=== PATIENT | female | born 1980 | race African-American/Black ===

== ENCOUNTER 2016-07-24 10:58 | Emergency (ER) | payer MEDICAID, MEDICARE ==
[2016-07-24] MEDS ORDERED: MORPHINE SULFATE 5 MG/ML PFS IVP ONE (11:20)
[2016-07-24] MEDS ORDERED: ONDANSETRON HCL IV 4 MG/2 ML VIAL IVP ONE (11:20)
--- NOTE | 2016-07-24 11:24 | Emergency Department Record ---
History of Present Illness - General Chief Complaint: Abdominal Pain Stated Complaint: ABD PAIN Time Seen by Provider: 07/24/16 11:01 Source: Patient Mode of Arrival: Wheelchair Limitations: No limitations - History of Present Illness Initial Comments: 35 yo female presents to ED with a CC of suprapubic abdominal pain, right sided flank pain, nausea, and vomiting symptoms that began last night and have progressively worsened. Patient denies fevers/chills or urinary symptoms, and reports previous samuel. Patient reports a history of DM at her baseline. MD Complaint: Abdominal pain Onset/Timin -: Hour(s) Location: Suprapubic Radiation: None Severity: Severe Quality: Aching Consistency: Constant Improves With: Nothing Worsens With: Nothing Associated Symptoms: Nausea, Vomiting - Related Data LMP Date: 03/05/16 Patient : No Home Medications Medication Instructions Recorded Confirmed Last Taken Insulin Aspart [Novolog] 10 units SQ TIDAC 07/24/16 07/24/16 07/23/16 Insulin Glargine,Hum.rec.anlog 30 unit SQ QHS 07/24/16 07/24/16 07/23/16 [Lantus] Allergies Allergy/AdvReac Type Severity Reaction Status Date / Time No Known Drug Allergies Allergy Verified 07/24/16 11:09 Travel Screening - Travel/Exposure Within Last 30 Days Have you traveled within the last 30 days?: No - Travel/Exposure Within Last Year Have you traveled outside the [place] in the last year?: No - Additonal Travel Details Have you been exposed to anyone with a communicable illness?: No - Travel Symptoms Symptom Screening: None Review of Systems Constitutional: Denies: Chills, Fever, Malaise, Night sweats Eyes: Denies: Eye discharge, Eye pain ENT: Denies: Congestion, Ear pain, Epistaxis Respiratory: Denies: Cough, Dyspnea Cardiovascular: Denies: Chest pain, Dyspnea on exertion Endocrine: Denies: Fatigue, Heat or cold intolerance Gastrointestinal: Reports: Abdominal pain, Nausea, Vomiting Genitourinary: Denies: Frequency, Hematuria, Incontinence, Retention Musculoskeletal: Reports: Back pain (right sided flank pain). Denies: Arthralgia, Gout, Joint swelling Skin: Denies: Bruising, Change in color, Change in hair/nails Neurological: Denies: Abnormal gait, Confusion, Headache Psychiatric: Denies: Anxiety Past Medical History - SOCIAL HISTORY Smoking Status: Never smoker Alcohol Use: None Drug Use: None - RESPIRATORY Hx Respiratory Disorders: No - CARDIOVASCULAR Hx Cardio Disorders: No - NEURO Hx Neuro Disorders: No - GI Hx GI Disorders: No - Hx Genitourinary Disorders: No - ENDOCRINE Hx Endocrine Disorders: Yes Hx Diabetes: Yes Hx Thyroid Disease: No - MUSCULOSKELETAL Hx Musculoskeletal Disorders: No - PSYCH Hx Psych Problems: No - HEMATOLOGY/ONCOLOGY Hx Hematology/Oncology Disorders: No Family Medical History Any Significant Family History?: No Physical Exam - General General Appearance: Alert, Oriented x3, Cooperative, Moderate distress (appears uncomfortable on examination) Limitations: No limitations - Head Head exam: Atraumatic, Normocephalic, Normal inspection Head exam detail: negative: Abrasion, Contusion, Valenzuela's sign, General tenderness, Hematoma, Laceration - Eye Eye exam: Normal appearance. negative: Conjunctival injection, Periorbital swelling, Periorbital tenderness, Scleral icterus - ENT Ear exam: negative: Auricular hematoma, Auricular trauma Nasal Exam: negative: Active bleeding, Discharge, Dried blood, Foreign body Mouth exam: negative: Drooling, Laceration, Muffled voice, Tongue elevation - Neck Neck exam: Normal inspection. negative: Meningismus, Tenderness - Respiratory Respiratory exam: Normal lung sounds bilaterally. negative: Respiratory distress, Rhonchi, Stridor, Wheezes - Cardiovascular Cardiovascular Exam: Normal rhythm, Normal heart sounds, Tachycardia - GI/Abdominal GI/Abdominal exam: Soft, Tenderness (TTP suprapubic region on examination without rebound or guarding symptoms). negative: Organomegaly, Pulsatile mass, Rebound, Rigid - Rectal Rectal exam: Deferred - exam: Deferred - Extremities Extremities exam: Normal inspection. negative: Calf tenderness, Pedal edema, Tenderness - Back Back exam: Reports: CVA tenderness (R). Denies: CVA tenderness (L) - Neurological Neurological exam: Alert, Oriented X3. negative: Motor sensory deficit - Psychiatric Psychiatric exam: Normal affect, Normal mood - Skin Skin exam: Normal color. negative: Abrasion Type of lesion: negative: abrasion Course Vital Signs 07/24/16 10:59 Temperature 98.9 F Pulse Rate 105 H Respiratory 20 Rate Blood Pressure 203/116 Pulse Ox 99 - Reevaluation(s) Reevaluation #1: 07/24/16 12:58 Patient is back from CT imaging, reports that her pain symptoms have worsened following her imaging study. Morphine was administered approximately 25 minutes ago IM, Dilaudid ordered IV at this time. Reevaluation #2: 07/24/16 13:19 CT Abdomen and Pelvis: No definite acute process identified, no hydronephrosis, s/p cholecystectomy Reevaluation #3: 07/24/16 14:07 Patient was updated on all results, and appears to be resting comfortably. Records from [facility] [place] Emergency Department reviewed, patient has been seen multiple times for similar symptoms with negative work-ups. Patient has been seen in ED 5 times in 2 weeks for abdominal pain and chest pain symptoms. In review of the patient's records, she has a history of leaving AMA when opiates are not given in ED. Patient also saw her PCP Dr. Ambrosio 07/21 for her symptoms and is being referred to GI for further evaluation. Patient's laboratory studies today are very similar to 07/23/16 at [facility], and the patient appears stable for discharge at this time with instructions for follow- up with her PCP for her chronic abdominal pain symptoms. Patient was also counseled on the number of CT imaging studies that she has undergone and the risk of cancer due to radiation exposure. Patient was counseled to be honest with her previous evaluations as well. Medical Decision Making - Lab Data Result diagrams: 07/24/16 13:30 07/24/16 13:30 Disposition Disposition: Discharge Clinical Impression: Chronic abdominal pain Disposition: Home, Self-Care Condition: (2) Stable Instructions: Abdominal Pain (ED) Additional Instructions: Return to ED if your symptoms worsen or if you have any concerns. Follow-up with Dr. Ambrosio in 3-5 days as directed for your chronic pain symptoms. Forms: Patient Portal Access Time of Disposition: 14:16
[2016-07-24] MEDS ORDERED: 0.9 % SODIUM CHLORIDE 1000ML 1,000 ML IV SCH (11:30)
[2016-07-24] MEDS ORDERED: MORPHINE SULFATE 5 MG/ML PFS IM ONE (12:09)
[2016-07-24] MEDS ORDERED: ONDANSETRON 4 MG ODT TABLET SL ONE (12:10)
[2016-07-24] MEDS ORDERED: HYDROMORPHONE HCL 1 MG/ML CPJ IVP ONE (12:58)
[2016-07-24 13:41] LABS: BASO % 0.4 % (0-6); EOS % 3.8 % (0-6); GRAN % 63.1 % (47-80); HEMATOCRIT 28.6 % (35.0-47.0); LYMPH % 25.2 % (16-45); MEAN CELL VOLUME 81.9 fl (81-97); MEAN CORPUSCULAR HGB CONC 31.5 g/dl (32-36); MEAN PLATELET VOLUME 12.8 fl (7.4-10.4); MONO % 7.5 % (0-9); PLATELET COUNT 311 K/uL (130-400); RED BLOOD COUNT 3.49 M/uL (3.80-5.40); RED CELL DISTRIBUTION WIDTH 14.6 % (11.5-14.5); WHITE BLOOD COUNT W/O DIFF 7.9 K/uL (4.2-12.2)
[2016-07-24 13:42] LABS: MEAN CORPUSCULAR HEMOGLOBIN 25.7 pg (27-33)
[2016-07-24 13:46] LABS: ALBUMIN 3.4 gm/dL (3.5-5.0); BILIRUBIN,TOTAL 0.57 mg/dL (0.2-1.3); CREATININE 2.1 mg/dL (0.52-1.04); TOTAL PROTEIN 6.7 gm/dL (6.3-8.2)
[2016-07-24] MEDS ORDERED: PROMETHAZINE HCL 25 MG in 0.9 % SODIUM CHLORIDE 100ML 50 ML IVP ONE (13:49)
[2016-07-24 13:53] LABS: URINE APPEARANCE SL CLOUDY; URINE BILIRUBIN NEGATIVE (NEGATIVE); URINE BLOOD SMALL (NEGATIVE); URINE COLOR YELLOW; URINE KETONE NEGATIVE (NEGATIVE); URINE LEUKOCYTE ESTERASE NEGATIVE (NEGATIVE); URINE NITRITE NEGATIVE (NEGATIVE); URINE UROBILINOGEN 0.2 E.U./dL (0.20 - 1.00)
[2016-07-24 13:54] LABS: URINE PROTEIN 300 mg/dL (NEGATIVE)
[2016-07-24 14:03] LABS: URINE BACTERIA NONE SEEN; URINE EPITHELIAL CELLS 0 - 2 (FEW); URINE RBC 0 - 2 (NONE SEEN); URINE WBC NONE SEEN (0-2/hpf)
--- NOTE | 2016-07-24 14:30 | CT SCAN REPORT ---
EXAM: EMERGENCY CT OF THE ABDOMEN AND PELVIS WITHOUT CONTRAST HISTORY: RIGHT LOWER QUADRANT PAIN, RIGHT SIDED FLANK PAIN. PRIOR CHOLECYSTECTOMY THREE MONTHS AGO. TECHNIQUE: Axial CT scan of the abdomen and pelvis was performed without oral or IV contrast. Comparison: None. FINDINGS: Surgical clips in the gallbladder fossa consistent with the history of cholecystectomy. No intrarenal calculi identified on either side. No hydronephrosis or hydroureter seen on either side. No hydroureter seen on either side and as such it is somewhat difficult to follow the entire course of the ureters in their nondilated state throughout the retroperitoneum and pelvis. There are several small pelvic calcifications bilaterally. These are probably all phleboliths with no definite ureteral calculus seen and no bladder calculus evident, however, if there remains a strong clinical suspicion of a ureteral calculus, follow-up CT urography could be obtained to more accurately assess the relationship of the ureters to these calcifications. Evaluation of the bowel and viscera are very limited without oral or IV contrast. Allowing for this limitation, no definite hepatic, splenic, adrenal, pancreatic, or renal mass identified. Calcified right hilar nodes likely representing old granulomatous disease. Some fluid in the lower esophagus which is nonspecific. Mild diverticulosis in the colon including the right side of the colon, but no diverticulitis evident. I believe the appendix is identified as a normal caliber structure with no appendicitis evident. No free intraperitoneal air or free intraperitoneal fluid identified. There is slight soft tissue prominence in the midline of the anterior abdominal wall superior to the umbilicus which may be related to prior surgical incision and may represent some mild residual scarring in this region. This does not appear a fluid density to be typical of a seroma. IMPRESSION: 1. NO DEFINITE URINARY TRACT CALCULI OR HYDRONEPHROSIS EVIDENT. NUMEROUS PELVIC CALCIFICATIONS ARE SEEN, PRESUMABLY PHLEBOLITHS DESCRIBED ABOVE. 2. POSTOP CHOLECYSTECTOMY. 3. DIVERTICULOSIS, BUT NO DIVERTICULITIS EVIDENT. 4. PROMINENT SOFT TISSUE DENSITY IN THE MIDLINE OF THE ABDOMEN JUST SUPERIOR TO THE UMBILICUS MAY REPRESENT SOME POSTOPERATIVE SCARRING. 5. CALCIFIED RIGHT HILAR NODES CONSISTENT WITH OLD GRANULOMATOUS DISEASE. 6. SOME FLUID IN THE LOWER ESOPHAGUS MAY REPRESENT SOME GASTROESOPHAGEAL REFLUX. JOB NUMBER: [id number] [facility]
== END 2016-07-24 14:35 | disposition home or self-care (01) ==
LOC: ER 10:58
DX: G89.29 Other chronic pain (principal); R10.31 Right lower quadrant pain; R11.2 Nausea with vomiting, unspecified; E11.9 Type 2 diabetes mellitus without complications; Z79.4 Long term (current) use of insulin
CPT/HCPCS: 99284 ×2; 96376; 96374; 96372; 96375; 96361; 83690; 85025; 80053; 81001; 74176; J2405; J1170; J2270; J2550; J7030

== ENCOUNTER 2016-08-12 07:58 | Emergency (ER) | payer MEDICARE ==
[2016-08-12] MEDS ORDERED: 0.9 % SODIUM CHLORIDE 1,000 ML BAG IV ONE (08:22)
--- NOTE | 2016-08-12 08:33 | Emergency Department Record ---
History of Present Illness - General Chief complaint: Nausea, Vomiting, Diarrhea Stated complaint: VOMITING/ABD PAIN Time Seen by Provider: 08/12/16 08:05 Source: Patient, RN notes reviewed - History of Present Illness Initial comments: Patient states she is having abdominal pain and vomiting coffee ground emesis and she was seen yesterday at [facility] and they gave her pain meds and her mom said they didn't do anything except gave her pain meds. Patient is screaming and rolling around in the bed and she stated the pain is lower abd pain and it feels like it is a stabbing pain. Her mother states she has a GI appointment and going to have an EGD and colonoscopy September 02 complaint: Abdominal pain - Related Data Home Medications Medication Instructions Recorded Confirmed Last Taken Insulin Aspart [Novolog] 10 units SQ TIDAC 07/24/16 07/24/16 07/23/16 Insulin Glargine,Hum.rec.anlog 30 unit SQ QHS 07/24/16 07/24/16 07/23/16 [Lantus] Allergies Allergy/AdvReac Type Severity Reaction Status Date / Time No Known Drug Allergies Allergy Verified 07/24/16 11:09 Review of Systems Reviewed: No additional complaints except as noted below Constitutional: Reports: As per HPI. Denies: Chills, Fever, Malaise, Night sweats, Weakness, Weight change Eyes: Reports: As per HPI. Denies: Eye discharge, Eye pain, Photophobia, Vision change ENT: Reports: As per HPI. Denies: Congestion, Dental pain, Ear pain, Epistaxis , Hearing loss, Throat pain Respiratory: Reports: As per HPI. Denies: Cough, Dyspnea, Hemoptysis, Stridor, Wheezes Cardiovascular: Reports: As per HPI. Denies: Arrhythmia, Chest pain, Dyspnea on exertion, Edema, Murmurs, Orthopnea, Palpitations, Paroxysmal nocturnal dyspnea, Rheumatic Fever, Syncope Endocrine: Reports: As per HPI. Denies: Fatigue, Heat or cold intolerance, Polydipsia, Polyuria Gastrointestinal: Reports: As per HPI, Abdominal pain, Nausea, Vomiting. Denies : Constipation, Diarrhea, Hematemesis, Hematochezia, Melena Genitourinary: Reports: As per HPI. Denies: Abnormal menses, Discharge, Dyspareunia, Dysuria, Frequency, Hematuria, Incontinence, Retention, Urgency Musculoskeletal: Reports: As per HPI. Denies: Arthralgia, Back pain, Gout, Joint swelling, Myalgia, Neck pain Skin: Reports: As per HPI. Denies: Bruising, Change in color, Change in hair/ nails, Lesions, Pruritus, Rash Neurological: Reports: As per HPI. Denies: Abnormal gait, Confusion, Headache, Numbness, Paresthesias, Seizure, Tingling, Tremors, Vertigo, Weakness Psychiatric: Reports: As per HPI. Denies: Anxiety, Auditory hallucinations, Depression, Homicidal thoughts, Suicidal thoughts, Visual hallucinations Hematological/Lymphatic: Reports: As per HPI. Denies: Anemia, Blood Clots, Easy bleeding, Easy bruising, Swollen glands Past Medical History - SOCIAL HISTORY Smoking Status: Never smoker Drug Use: None - RESPIRATORY Hx Respiratory Disorders: No - CARDIOVASCULAR Hx Cardio Disorders: No - NEURO Hx Neuro Disorders: No - GI Hx GI Disorders: No - Hx Genitourinary Disorders: No - ENDOCRINE Hx Endocrine Disorders: Yes Hx Diabetes: Yes Hx Thyroid Disease: No - MUSCULOSKELETAL Hx Musculoskeletal Disorders: No - PSYCH Hx Psych Problems: No - HEMATOLOGY/ONCOLOGY Hx Hematology/Oncology Disorders: No Physical Exam - General General Appearance: Alert, Oriented x3, Cooperative, Mild distress, Other ( screaming in pain and rolling around the bed and staff person Anabelle stated putting her finger down her throat and forcing the vomiting.) - Head Head exam: Normal inspection - Eye Eye exam: Normal appearance, PERRL Pupils: Normal accommodation - ENT ENT exam: Normal exam, Mucous membranes moist, Normal external ear exam, Normal orophraynx, TM's normal bilaterally Ear exam: Normal external inspection. negative: External canal tenderness Nasal Exam: Normal inspection. negative: Discharge, Sinus tenderness Mouth exam: Normal external inspection, Tongue normal Teeth exam: Normal inspection. negative: Dental caries Throat exam: Normal inspection. negative: Tonsillar erythema, Tonsillar exudate - Neck Neck exam: Normal inspection, Full ROM. negative: Tenderness - Respiratory Respiratory exam: Normal lung sounds bilaterally. negative: Respiratory distress - Cardiovascular Cardiovascular Exam: Regular rate, Normal rhythm, Normal heart sounds - GI/Abdominal GI/Abdominal exam: Soft, Normal bowel sounds. negative: Tenderness - Rectal Rectal exam: Deferred - exam: Deferred - Extremities Extremities exam: Normal inspection, Full ROM, Normal capillary refill. negative: Tenderness - Back Back exam: Reports: Normal inspection, Full ROM. Denies: Muscle spasm, Rash noted, Tenderness - Neurological Neurological exam: Alert, Normal gait, Oriented X3, Reflexes normal - Psychiatric Psychiatric exam: Normal affect, Normal mood - Skin Skin exam: Dry, Intact, Normal color, Warm Course - Reevaluation(s) Reevaluation #1: coffee ground emesis but hg has improved to 9.1. patient is feeling better but occassional sticks her finger down the throat to vomit 08/12/16 11:12 08/12/16 11:13 Reevaluation #2: patient stated she could not urinate for the [employer] and she reported a large bladder . ratliff placed and she had 1700 ml in her bladder. 08/12/16 15:04 Medical Decision Making - Data Complexity MDM Data: Labs Ordered and/or Reviewed (hg 9.1), X-Ray Ordered and/or Reviewed ( US pelvis negative), Decision to Obtain Old Record (from [facility] discharged from [facility] 2 hours ago.), Review and Summary of Old Record Discussed (No ED chart available at this time from [facility] from [facility] visit. reviewed ED chart from our hospital on 07/2016) - Lab Data Result diagrams: 08/12/16 10:30 08/12/16 10:20 Disposition Forms: Patient Portal Access
[2016-08-12] MEDS ORDERED: PROMETHAZINE HCL 25 MG/ML VIAL IM PRN (08:34)
[2016-08-12] MEDS: HYDROMORPHONE HCL 1 MG/ML CPJ IM ONE ×2 (08:48→09:04)
[2016-08-12] MEDS: PROMETHAZINE HCL 25 MG/ML VIAL IM ONE ×2 (08:48→09:04)
[2016-08-12 10:29] LABS: URINE APPEARANCE SL CLOUDY; URINE BILIRUBIN NEGATIVE (NEGATIVE); URINE BLOOD SMALL (NEGATIVE); URINE COLOR YELLOW; URINE KETONE TRACE (NEGATIVE); URINE LEUKOCYTE ESTERASE NEGATIVE (NEGATIVE); URINE NITRITE NEGATIVE (NEGATIVE); URINE UROBILINOGEN 0.2 E.U./dL (0.20 - 1.00)
[2016-08-12 10:35] LABS: AMPHETAMINE SCREEN URINE NOT DETECTED; BARBITURATE SCREEN URINE NOT DETECTED; BENZODIAZEPINE SCREEN URINE NOT DETECTED; COCAINE SCREEN URINE NOT DETECTED; METHADONE SCREEN URINE NOT DETECTED; METHAMPHETAMINE SCREEN NOT DETECTED; OPIATE SCREEN URINE DETECTED; OXYCODONE SCREEN URINE NOT DETECTED; PHENCYCLIDINE SCREEN URINE NOT DETECTED; PROPOXYPHENE SCREEN URINE NOT DETECTED; THC SCREEN URINE NOT DETECTED; TRICYCLIC ANTIDEPRESSANT SCRN NOT DETECTED; URINE GLUCOSE (UA) >=1000 mg/dL (NEGATIVE)
[2016-08-12 10:42] LABS: URINE BACTERIA NONE SEEN; URINE EPITHELIAL CELLS 0 - 2 (FEW); URINE RBC 0 - 2 (NONE SEEN); URINE WBC NONE SEEN (0-2/hpf)
[2016-08-12 10:42] LABS: BASO % 0.2 % (0-6); EOS % 0.2 % (0-6); HEMATOCRIT 28.3 % (35.0-47.0); HEMOGLOBIN 9.1 gm/dl (11.6-16.0); LYMPH % 7.4 % (16-45); MEAN CELL VOLUME 80.9 fl (81-97); MEAN CORPUSCULAR HGB CONC 32.2 g/dl (32-36); MEAN PLATELET VOLUME 12.4 fl (7.4-10.4); MONO % 1.4 % (0-9); PLATELET COUNT 227 K/uL (130-400); RED CELL DISTRIBUTION WIDTH 14.4 % (11.5-14.5); WHITE BLOOD COUNT W/O DIFF 10.7 K/uL (4.2-12.2)
[2016-08-12 10:44] LABS: ALBUMIN 3.7 gm/dL (3.5-5.0); ANION GAP 16.2 (7-16); BILIRUBIN,TOTAL 1.34 mg/dL (0.2-1.3); CARBON DIOXIDE 20.8 mmol/L (22-30); TOTAL PROTEIN 7.2 gm/dL (6.3-8.2)
[2016-08-12] MEDS ORDERED: HYDROMORPHONE HCL 1 MG/ML CPJ IVP ONE ×2 (11:36→13:22)
[2016-08-12] MEDS ORDERED: PANTOPRAZOLE SODIUM IV 40 MG VIAL IVP ONE (11:55)
--- NOTE | 2016-08-12 15:05 | ULTRASOUND REPORT ---
EXAM: PELVIC ULTRASOUND HISTORY: PELVIC PAIN. TECHNIQUE: Transvaginal and transabdominal sonographic evaluation of the pelvis was performed using mora scale imaging with the addition of color flow Doppler and spectral analysis. FINDINGS: The uterus is anteverted. The uterus measures 7.3 x 3.1 x 4.6 cm. The endometrial stripe measurement is 3 mm. The right ovary measures 3.1 x 1.3 x 2.8 cm. The left ovary measures 3.6 x 1.8 x 1.6 cm. There is normal follicular change. There is normal arterial and venous flow. IMPRESSION: UNREMARKABLE PELVIC SONOGRAM. JOB NUMBER: [id number] [facility]TDD
--- NOTE | 2016-08-12 16:15 | Emergency Department Record ---
History of Present Illness - General Chief complaint: Nausea, Vomiting, Diarrhea Stated complaint: VOMITING/ABD PAIN Time Seen by Provider: 08/12/16 08:05 Source: Patient, RN notes reviewed Mode of Arrival: Wheelchair - History of Present Illness Initial comments: see previous ED chart from today MD complaint: Abdominal pain Onset/Timin -: Hour(s) Description of Vomiting: Bloody, Coffee grounds Associated Abdominal Pain: Yes Location: Diffuse Radiation: None Severity scale (1-10): 10 Quality: Constant, Sharp, Stabbing Consistency: Constant Improves with: None Worsens with: None Associated Symptoms: Denies other symptoms - Related Data Home Medications Medication Instructions Recorded Confirmed Last Taken Insulin Aspart [Novolog] 10 units SQ TIDAC 07/24/16 08/12/16 08/11/16 Insulin Glargine,Hum.rec.anlog 30 unit SQ QHS 07/24/16 08/12/16 08/11/16 [Lantus] Amlodipine Besylate [Norvasc] 5 mg PO DAILY 08/12/16 08/12/16 08/11/16 Hydralazine HCl [Apresoline] 25 mg PO QID 08/12/16 08/12/16 08/11/16 Pantoprazole Sodium [Protonix] 40 mg PO DAILY 08/12/16 08/12/16 08/11/16 Allergies Allergy/AdvReac Type Severity Reaction Status Date / Time No Known Drug Allergies Allergy Verified 07/24/16 11:09 Travel Screening - Travel/Exposure Within Last 30 Days Have you traveled within the last 30 days?: No - Travel/Exposure Within Last Year Have you traveled outside the [place] in the last year?: No - Additonal Travel Details Have you been exposed to anyone with a communicable illness?: No - Travel Symptoms Symptom Screening: None Review of Systems Constitutional: Reports: As per HPI. Denies: Chills, Fever, Malaise, Night sweats, Weakness, Weight change Eyes: Reports: As per HPI. Denies: Eye discharge, Eye pain, Photophobia, Vision change ENT: Reports: As per HPI. Denies: Congestion, Dental pain, Ear pain, Epistaxis , Hearing loss, Throat pain Respiratory: Reports: As per HPI. Denies: Cough, Dyspnea, Hemoptysis, Stridor, Wheezes Cardiovascular: Reports: As per HPI. Denies: Arrhythmia, Chest pain, Dyspnea on exertion, Edema, Murmurs, Orthopnea, Palpitations, Paroxysmal nocturnal dyspnea, Rheumatic Fever, Syncope Endocrine: Reports: As per HPI. Denies: Fatigue, Heat or cold intolerance, Polydipsia, Polyuria Gastrointestinal: Reports: As per HPI, Abdominal pain, Nausea, Vomiting. Denies : Constipation, Diarrhea, Hematemesis, Hematochezia, Melena Genitourinary: Reports: As per HPI. Denies: Abnormal menses, Discharge, Dyspareunia, Dysuria, Frequency, Hematuria, Incontinence, Retention, Urgency Musculoskeletal: Reports: As per HPI. Denies: Arthralgia, Back pain, Gout, Joint swelling, Myalgia, Neck pain Skin: Reports: As per HPI. Denies: Bruising, Change in color, Change in hair/ nails, Lesions, Pruritus, Rash Neurological: Reports: As per HPI. Denies: Abnormal gait, Confusion, Headache, Numbness, Paresthesias, Seizure, Tingling, Tremors, Vertigo, Weakness Psychiatric: Reports: As per HPI. Denies: Anxiety, Auditory hallucinations, Depression, Homicidal thoughts, Suicidal thoughts, Visual hallucinations Hematological/Lymphatic: Reports: As per HPI. Denies: Anemia, Blood Clots, Easy bleeding, Easy bruising, Swollen glands Past Medical History - SOCIAL HISTORY Smoking Status: Never smoker Drug Use: None - RESPIRATORY Hx Respiratory Disorders: No - CARDIOVASCULAR Hx Cardio Disorders: No - NEURO Hx Neuro Disorders: No - GI Hx GI Disorders: No - Hx Genitourinary Disorders: No - ENDOCRINE Hx Endocrine Disorders: Yes Hx Diabetes: Yes Hx Thyroid Disease: No - MUSCULOSKELETAL Hx Musculoskeletal Disorders: No - PSYCH Hx Psych Problems: No - HEMATOLOGY/ONCOLOGY Hx Hematology/Oncology Disorders: No Family Medical History Any Significant Family History?: No Physical Exam - General General Appearance: Alert, Oriented x3, Cooperative, Mild distress - Head Head exam: Normal inspection - Eye Eye exam: Normal appearance, PERRL Pupils: Normal accommodation - ENT ENT exam: Normal exam, Mucous membranes moist, Normal external ear exam, Normal orophraynx, TM's normal bilaterally Ear exam: Normal external inspection. negative: External canal tenderness Nasal Exam: Normal inspection. negative: Discharge, Sinus tenderness Mouth exam: Normal external inspection, Tongue normal Teeth exam: Normal inspection. negative: Dental caries Throat exam: Normal inspection. negative: Tonsillar erythema, Tonsillar exudate - Neck Neck exam: Normal inspection, Full ROM. negative: Tenderness - Respiratory Respiratory exam: Normal lung sounds bilaterally. negative: Respiratory distress - Cardiovascular Cardiovascular Exam: Regular rate, Normal rhythm, Normal heart sounds - GI/Abdominal GI/Abdominal exam: Soft, Normal bowel sounds, Tenderness (epigastric abdominal pain, bilateral lower abdominal pain ) - Rectal Rectal exam: Deferred - exam: Deferred - Extremities Extremities exam: Normal inspection, Full ROM, Normal capillary refill. negative: Tenderness - Back Back exam: Reports: Normal inspection, Full ROM. Denies: Muscle spasm, Rash noted, Tenderness - Neurological Neurological exam: Alert, Normal gait, Oriented X3, Reflexes normal - Psychiatric Psychiatric exam: Normal affect, Normal mood - Skin Skin exam: Dry, Intact, Normal color, Warm Course Vital Signs 08/12/16 08/12/16 08/12/16 08:10 08:34 14:07 Temperature 98.1 F 98.1 F Pulse Rate 121 H Pulse Rate [ 121 H 118 H Left] Respiratory 22 22 18 Rate Blood Pressure 150/134 Blood Pressure 150/134 149/92 [Left Arm] Pulse Ox 100 100 97 - Reevaluation(s) Reevaluation #1: patient informed me in [place] tried to teach her to cath herself because of urinary retention but she states she can't do it. 08/12/16 16:55 Reevaluation #2: Discussed case with Dr. Grace at [facility] and she wanted her sent to [facility] ED and talked to Dr. Langley at [facility] ED and he acceppted transfer to [facility] ED Patient needs urology for her urinary retention and GI for upper GI bleed( coffee ground emesis hemoccult positive). 08/12/16 17:28 08/12/16 17:32 Medical Decision Making - Lab Data Result diagrams: 08/12/16 10:30 08/12/16 10:20 Lab Results 08/12/16 08/12/16 08/12/16 Range/Units 10:20 10:20 10:20 WBC (4.2-12.2) K/uL RBC (3.80-5.40) M/uL Hgb (11.6-16.0) gm/dl Hct (35.0-47.0) % MCV (81-97) fl MCH (27-33) pg MCHC (32-36) g/dl RDW (11.5-14.5) % Plt Count (130-400) K/uL MPV (7.4-10.4) fl Neutrophils % (47-80) % Band Neutrophils % (0-5) % Lymphocytes % (16-45) % Monocytes % (0-9) % Eosinophils % (0-6) % Basophils % (0-6) % Lymphocytes (16-45) % Monocytes (0-9) % Basophils (0-6) % Eosinophil Count (0-6) % Sodium 145 (136-145) mmol/L Potassium 4.2 (3.5-5.1) mmol/L Chloride 108 H (98-107) mmol/L Carbon Dioxide 20.8 L (22-30) mmol/L Anion Gap 16.2 H (7-16) BUN 27 H (7-17) mg/dL Creatinine 2.0 H (0.52-1.04) mg/dL Estimated GFR 30 ml/min Random Glucose 342 H (70-110) mg/dL Calcium 9.3 (8.5-10.1) mg/dL Total Bilirubin 1.34 H (0.2-1.3) mg/dL Direct Bilirubin 0.0 (0-0.3) mg/dL AST 36 (14-36) U/L ALT 38 (9-52) U/L Alkaline Phosphatase 121 (38-126) U/L Total Protein 7.2 (6.3-8.2) gm/dL Albumin 3.7 (3.5-5.0) gm/dL Lipase 33 (23-300) U/L Serum HCG, Qual (NEGATIVE) Urine Color Yellow Urine Appearance Sl cloudy Urine pH 7.0 (5.0-8.0) Ur Specific [place] 1.015 (1.002-1.030) Urine Protein 100 mg/dl H (NEGATIVE) Urine Glucose (UA) >=1000 mg/dl H (NEGATIVE) Urine Ketones Trace H (NEGATIVE) Urine Blood Small H (NEGATIVE) Urine Nitrite Negative (NEGATIVE) Urine Bilirubin Negative (NEGATIVE) Urine Urobilinogen 0.2 (0.20 - 1.00) E.U./dL Ur Leukocyte Esterase Negative (NEGATIVE) Urine RBC 0 - 2 (NONE SEEN) Urine WBC None seen (0-2/hpf) Ur Epithelial Cells 0 - 2 (FEW) Urine Bacteria None seen Urine Opiates Screen Detected Ur Oxycodone Screen Not detected Urine Methadone Screen Not detected Ur Propoxyphene Screen Not detected Ur Barbituates Screen Not detected Ur Tricyclics Screen Not detected Ur Phencyclidine Scrn Not detected Ur Amphetamine Screen Not detected U Methamphetamines Scrn Not detected U Benzodiazepines Scrn Not detected Urine Cocaine Screen Not detected Urine Cannabis Screen Not detected Acetone, Qual (NEGATIVE) 08/12/16 08/12/16 08/12/16 Range/Units 10:20 10:20 10:30 WBC 10.7 (4.2-12.2) K/uL RBC 3.50 L (3.80-5.40) M/uL Hgb 9.1 L (11.6-16.0) gm/dl Hct 28.3 L (35.0-47.0) % MCV 80.9 L (81-97) fl MCH 26.0 L (27-33) pg MCHC 32.2 (32-36) g/dl RDW 14.4 (11.5-14.5) % Plt Count 227 (130-400) K/uL MPV 12.4 H (7.4-10.4) fl Neutrophils % 84.0 H (47-80) % Band Neutrophils % 0.0 (0-5) % Lymphocytes % 7.4 L (16-45) % Monocytes % 1.4 (0-9) % Eosinophils % 0.2 (0-6) % Basophils % 0.2 (0-6) % Lymphocytes 15.0 L (16-45) % Monocytes 1.0 (0-9) % Basophils 0.0 (0-6) % Eosinophil Count 0.0 (0-6) % Sodium (136-145) mmol/L Potassium (3.5-5.1) mmol/L Chloride (98-107) mmol/L Carbon Dioxide (22-30) mmol/L Anion Gap (7-16) BUN (7-17) mg/dL Creatinine (0.52-1.04) mg/dL Estimated GFR ml/min Random Glucose (70-110) mg/dL Calcium (8.5-10.1) mg/dL Total Bilirubin (0.2-1.3) mg/dL Direct Bilirubin (0-0.3) mg/dL AST (14-36) U/L ALT (9-52) U/L Alkaline Phosphatase (38-126) U/L Total Protein (6.3-8.2) gm/dL Albumin (3.5-5.0) gm/dL Lipase (23-300) U/L Serum HCG, Qual Negative (NEGATIVE) Urine Color Urine Appearance Urine pH (5.0-8.0) Ur Specific [place] (1.002-1.030) Urine Protein (NEGATIVE) Urine Glucose (UA) (NEGATIVE) Urine Ketones (NEGATIVE) Urine Blood (NEGATIVE) Urine Nitrite (NEGATIVE) Urine Bilirubin (NEGATIVE) Urine Urobilinogen (0.20 - 1.00) E.U./dL Ur Leukocyte Esterase (NEGATIVE) Urine RBC (NONE SEEN) Urine WBC (0-2/hpf) Ur Epithelial Cells (FEW) Urine Bacteria Urine Opiates Screen Ur Oxycodone Screen Urine Methadone Screen Ur Propoxyphene Screen Ur Barbituates Screen Ur Tricyclics Screen Ur Phencyclidine Scrn Ur Amphetamine Screen U Methamphetamines Scrn U Benzodiazepines Scrn Urine Cocaine Screen Urine Cannabis Screen Acetone, Qual Negative (NEGATIVE) Disposition Clinical Impression: Urinary retention, Renal insufficiency, Upper GI bleeding Anemia Qualifiers: Anemia type: iron deficiency Iron deficiency anemia type: chronic blood loss Qualified Code(s): D50.0 - Iron deficiency anemia secondary to blood loss ( chronic) Diabetes mellitus Qualifiers: Diabetes mellitus type: type 1 Diabetes mellitus complication status: with hyperglycemia Qualified Code(s): E10.65 - Type 1 diabetes mellitus with hyperglycemia Vomiting Qualifiers: Vomiting type: unspecified Vomiting Intractability: non-intractable Nausea presence: with nausea Qualified Code(s): R11.2 - Nausea with vomiting, unspecified Instructions: Acute Nausea and Vomiting (ED) Forms: Patient Portal Access
[2016-08-12] MEDS ORDERED: 0.9 % SODIUM CHLORIDE 1000ML 1,000 ML IV ONE (16:58)
[2016-08-12] MEDS ORDERED: PROMETHAZINE HCL 25 MG in 0.9 % SODIUM CHLORIDE 100ML 50 ML IVP ONE (17:53)
== END 2016-08-12 18:06 | disposition short-term general hospital (02) ==
LOC: ER 07:58
DX: K92.0 Hematemesis (principal); D50.0 Iron deficiency anemia secondary to blood loss (chronic); N28.9 Disorder of kidney and ureter, unspecified; E10.65 Type 1 diabetes mellitus with hyperglycemia; R33.9 Retention of urine, unspecified; R19.7 Diarrhea, unspecified; R10.13 Epigastric pain; Z79.899 Other long term (current) drug therapy; Z79.4 Long term (current) use of insulin
CPT/HCPCS: 51702; 99285 ×2; 96376; 96374; 96372; 96375; 96361; 83690; 80076; 80048; 81001; 82009; 84703; 80305; 85027; 76856; 76830; J1170; C9113; J2550; J7030